=== PATIENT | male | born 1965 | race Caucasian/White ===

== ENCOUNTER 2022-01-14 12:11 | Emergency (ER) | payer OTHER ==
[~2022-01-14] VITALS: Ht 180.3 cm; Wt 88.5 kg
[2022-01-14 12:18] VITALS: BP 142/81
--- NOTE | 2022-01-14 12:28 | NUR ---
PT TO WAITING ROOM, WILL ORDER EKG
--- NOTE | 2022-01-14 12:30 | NUR ---
56 y/o male bib self, c/o epigastric pain and dysuria for 1 week. a&ox4, ambulates with steady gait. denies cp, sob, sore throat, fever, n/v/d. pmh: denies nka
[2022-01-14 13:26] LABS: BASOPHILS # (AUTO) 0.1 K/uL (0.00-0.22); BASOPHILS % (AUTO) 0.8 % (0.0-2.0); EOSINOPHILS # (AUTO) 0.1 K/uL (0-0.4); EOSINOPHILS % (AUTO) 1.9 % (0.0-4.0); HEMATOCRIT 48.3 % (36-52); HEMOGLOBIN 16.5 g/dL (12.0-18.0); LYMPHOCYTES % (AUTO) 26.5 % (20.5-51.1); MEAN CORPUSCULAR HEMOGLOBIN 31 pg (27-31); MEAN CORPUSCULAR HGB CONC 34 g/dL (33-37); MEAN CORPUSCULAR VOLUME 89.3 fL (80-94); MONOCYTES # (AUTO) 0.6 K/uL (0.8-1.0); MONOCYTES % (AUTO) 7.7 % (1.7-9.3); NEUTROPHILS # (AUTO) 4.6 K/uL (1.8-7.7); NEUTROPHILS % (AUTO) 63.1 % (42.2-75.2); PLATELET COUNT (AUTO) 258 K/uL (140-450); RED BLOOD CELL COUNT(AUTO) 5.41 MIL/uL (4.20-6.10); RED CELL DISTRIBUTION WIDTH 13.3 % (11.6-13.7); WHITE BLOOD COUNT (AUTO) 7.4 K/uL (4.8-10.8)
[2022-01-14 13:36] LABS: ALBUMIN 3.7 g/dL (3.4-5.0); ANION GAP 8.6 (8-16); ASPARTATE AMINOTRANSFERASE 34 U/L (15-37); CARBON DIOXIDE 31.4 mmol/L (21-32); CHLORIDE 104 mmol/L (98-107); CREATININE 1.1 mg/dL (0.6-1.3); GFR ARICAN-AMERICAN 89 mL/min (>90); GLUCOSE 102 mg/dL (74-106); LIPASE 104 U/L (73-393); SODIUM SERUM 140 mmol/L (136-145); TOTAL BILIRUBIN 0.6 mg/dL (0.0-1.0); UREA NITROGEN, BLOOD 20 mg/dL (7-18)
--- NOTE | 2022-01-14 14:40 | NUR ---
called twice in lobby and outside, no answer at this time
--- NOTE | 2022-01-14 14:52 | NUR ---
called in lobby and outside, no answer at this time LWBS at this time
--- NOTE | 2022-01-14 15:07 | NUR ---
pt left without dx paperwork
[2022-01-14 15:11] VITALS: BP 142/81
--- NOTE | 2022-01-14 17:24 | NUR ---
pt came back for dx paperwork
== END 2022-01-14 15:11 | disposition home or self-care (01) ==
LOC: MED 12:11
DX: R10.13 Epigastric pain (principal)
CPT/HCPCS: 36415; 71045; 80053; 83690; 84484; 85025; 93005; 99285

== ENCOUNTER 2022-04-26 19:47 | Emergency (ER) | payer OTHER ==
[~2022-04-26] VITALS: Ht 180.3 cm; Wt 88.5 kg
[2022-04-26 20:31] VITALS: BP 154/85
--- NOTE | 2022-04-26 20:31 | NUR ---
eft leg pain 11/14. Pt says that it hurts him alot when he walks. pt took tylenol at 5pm with no releived. past medical history HTN
[2022-04-26] MEDS ORDERED: methocarbamoL 500 MG TAB PO STA (21:14)
[2022-04-26] MEDS ORDERED: KETOROLAC 15 MG/ML VIAL IM ONE (21:15)
[2022-04-26] MEDS ORDERED: predniSONE 20 MG TAB PO ONE (21:15)
[2022-04-26 21:24] LABS: BASOPHILS # (AUTO) 0.1 K/uL (0.00-0.22); BASOPHILS % (AUTO) 1.1 % (0.0-2.0); EOSINOPHILS # (AUTO) 0.2 K/uL (0-0.4); EOSINOPHILS % (AUTO) 2.1 % (0.0-4.0); HEMOGLOBIN 15.9 g/dL (12.0-18.0); LYMPHOCYTES # (AUTO) 1.8 K/uL (2.0-11.5); LYMPHOCYTES % (AUTO) 22.3 % (20.5-51.1); MEAN CORPUSCULAR HEMOGLOBIN 30 pg (27-31); MEAN CORPUSCULAR HGB CONC 35 g/dL (33-37); MEAN CORPUSCULAR VOLUME 87.7 fL (80-94); MONOCYTES # (AUTO) 0.6 K/uL (0.8-1.0); MONOCYTES % (AUTO) 7.6 % (1.7-9.3); NEUTROPHILS # (AUTO) 5.3 K/uL (1.8-7.7); NEUTROPHILS % (AUTO) 66.9 % (42.2-75.2); PLATELET COUNT (AUTO) 227 K/uL (140-450); RED BLOOD CELL COUNT(AUTO) 5.24 MIL/uL (4.20-6.10); RED CELL DISTRIBUTION WIDTH 13.7 % (11.6-13.7); WHITE BLOOD COUNT (AUTO) 7.9 K/uL (4.8-10.8)
[2022-04-26 21:40] LABS: ALBUMIN 3.8 g/dL (3.4-5.0); ANION GAP 11.9 (8-16); CARBON DIOXIDE 29.1 mmol/L (21-32); CREATININE 1.1 mg/dL (0.6-1.3); TOTAL BILIRUBIN 0.6 mg/dL (0.0-1.0)
--- NOTE | 2022-04-26 22:15 | NUR ---
PT RETURN FROM ULTRASOUND TO ER LOBBY
[2022-04-26] MEDS ORDERED: KETOROLAC 15 MG/ML VIAL ONE (22:19)
[2022-04-26] MEDS ORDERED: predniSONE 20 MG TAB ONE (22:19)
[2022-04-26] MEDS ORDERED: methocarbamoL 500 MG TAB ONE (22:20)
[2022-04-26] MEDS ORDERED: METH-1681 PO (22:22)
[2022-04-26] MEDS ORDERED: IBUP-2213 PO (22:22)
[2022-04-26] MEDS ORDERED: LID5T TP (22:22)
[2022-04-26] MEDS ORDERED: PRED20TA5 PO (22:22)
[2022-04-27 00:35] VITALS: BP 154/85
--- NOTE | 2022-04-27 02:42 | NUR ---
Patient discharged with v/s stable. Written and verbal after care instructions given and explained. Patient verbalized understanding. Ambulatory with steady gait. All questions addressed prior to discharge. Advised to follow up with PMD. Pt is left with belonigings.
--- NOTE | 2022-04-27 02:44 | NUR ---
Patient discharged with v/s stable. Written and verbal after care instructions given and explained. Patient verbalized understanding. Ambulatory with steady gait. All questions addressed prior to discharge. Advised to follow up with PMD. pt left with his belongings.
== END 2022-04-27 02:44 | disposition home or self-care (01) ==
LOC: MED 19:47
DX: M54.17 Radiculopathy, lumbosacral region (principal); M79.605 Pain in left leg; I10 Essential (primary) hypertension; Z79.899 Other long term (current) drug therapy; Z79.1 Long term (current) use of non-steroidal anti-inflammatories (NSAID)
CPT/HCPCS: 36415; 80053; 82550; 85025; 93971; 96372; 99285; J1885; J7512; Q0092